=== PATIENT | male | born 1980 | race Caucasian/White ===

== ENCOUNTER 2023-10-21 13:05 | Emergency (ER) | payer OTHER ==
[2023-10-21] MEDS ORDERED: Boostrix 0.5 ML (Tdap) VIAL (>/=7 yrs of age) ONE (13:50)
[2023-10-21] MEDS ORDERED: Lidocaine 1% w/Epinephrine 1:100K 20 ML VIAL ONE (14:00)
[2023-10-21] MEDS ORDERED: Bacitracin 1 PK ONE (15:17)
[2023-10-21] MEDS ORDERED: Amoxicillin/Potassium Clav 875 MG TAB ONE (15:34)
== END 2023-10-21 15:38 | disposition home or self-care (01) ==
LOC: NAV ERS 13:05
DX: S61.551A Open bite of right wrist, initial encounter (principal); S61.511A Laceration without foreign body of right wrist, initial encounter; Z23 Encounter for immunization; W54.0XXA Bitten by dog, initial encounter
CPT/HCPCS: 12001; 90471; 90715